=== PATIENT | female | born 1975 | race Caucasian/White ===

== ENCOUNTER 2018-05-07 18:21 | Emergency (ER) | payer OTHER ==
[~2018-05-07] VITALS: Ht 154.9 cm; Wt 65.9 kg
[2018-05-07] MEDS ORDERED: LIDOCAINE 5% TRANSDERMAL PATCH TD ONE (20:00)
[2018-05-07] MEDS ORDERED: METHOCARBAMOL 500 MG TABLET PO ONE (20:00)
[2018-05-07] MEDS ORDERED: KETOROLAC TROMETHAMINE 30 MG/ML VIAL IM ONE (20:00)
[2018-05-07 22:08] VITALS: BP 110/70
== END 2018-05-07 22:10 | disposition home or self-care (01) ==
LOC: EMS 18:22
DX: M54.2 Cervicalgia (principal); R51 Headache; R03.0 Elevated blood-pressure reading, without diagnosis of hypertension; G89.29 Other chronic pain; V49.40XA Driver injured in collision with unspecified motor vehicles in traffic accident, initial encounter; Y93.89 Activity, other specified; Y92.89 Other specified places as the place of occurrence of the external cause; Y99.8 Other external cause status
CPT/HCPCS: 72040; 96372; 99284; J1885

== ENCOUNTER 2018-10-02 16:55 | Emergency (ER) | payer OTHER ==
[~2018-10-02] VITALS: Ht 30.5 cm; Wt 68.2 kg
[2018-10-02] MEDS ORDERED: IBUP-2070 PO (17:46)
[2018-10-02 22:10] VITALS: BP 122/80
== END 2018-10-02 22:11 | disposition home or self-care (01) ==
LOC: EMS 16:55
DX: R21 Rash and other nonspecific skin eruption (principal); M79.604 Pain in right leg; F17.210 Nicotine dependence, cigarettes, uncomplicated; F12.90 Cannabis use, unspecified, uncomplicated
CPT/HCPCS: 93926; 93971; 99406

== ENCOUNTER 2022-08-18 10:52 | Emergency (ER) | payer OTHER ==
[~2022-08-18] VITALS: Ht 157.5 cm; Wt 68.2 kg
[~2022-08-18 10:52] MED LIST: IBUP-1492 PO
[2022-08-18] MEDS ORDERED: DiphenhydrAMINE HCL 50 MG/ML VIAL IVP ONE (12:30)
[2022-08-18] MEDS ORDERED: METOCLOPRAMIDE HCL 5 MG/ML 2 ML VIAL IVP ONE (12:30)
[2022-08-18] MEDS ORDERED: ACETAMINOPHEN 500 MG TABLET PO ONE (12:30)
[2022-08-18 12:34] LABS: COVID AG,FIA SOURCE NASOPHARYNGEAL
[2022-08-18 12:55] LABS: BASOPHILS % (AUTO) 0.4 % (0.0-2.0); EOSINOPHILS % (AUTO) 1.1 % (1.0-6.0); HEMATOCRIT 31.7 % (36-46); HEMOGLOBIN 10.3 g/dL (12.0-16.0); LYMPHOCYTES # (AUTO) 1.1 K/uL (1.0-4.8); LYMPHOCYTES % (AUTO) 8.7 % (22.0-44.0); MEAN CORPUSCULAR HEMOGLOBIN 28.1 pg (26.0-34.0); MEAN CORPUSCULAR HGB CONC 32.4 G/dL (31.0-37.0); MEAN CORPUSCULAR VOLUME 87 fL (80-100); MONOCYTES # (AUTO) 0.9 K/uL (0.1-1.0); MONOCYTES % (AUTO) 6.5 % (2.0-9.0); NEUTROPHILS % (AUTO) 83.3 % (40.0-70.0); PLATELET COUNT (AUTO) 412 K/uL (150-450); RED BLOOD CELL COUNT(AUTO) 3.65 MIL/uL (4.00-5.20); RED CELL DISTRIBUTION WIDTH 15.1 % (11.5-14.5)
[2022-08-18 13:04] LABS: ANION GAP 9 mmol/L (8-16); CALCIUM, TOTAL 8.5 mg/dL (8.8-10.5); CARBON DIOXIDE 28 mmol/L (22-29); CHLORIDE 104 mmol/L (98-107); CREATININE 0.62 mg/dL (0.60-1.30); GLUCOSE,RANDOM 91 mg/dL (70-110); POTASSIUM 3.7 mmol/L (3.5-5.1); SODIUM SERUM 141 mmol/L (136-145); UREA NITROGEN, BLOOD 8 mg/dL (7-18)
[2022-08-18 13:05] LABS: GLOMERULAR FILTR. RATE CALC > 60 mL/min (>60)
[2022-08-18 13:06] LABS: B-TYPE NATRIURETIC PEPTIDE 47 pg/mL (0-100)
[2022-08-18 13:09] LABS: INFLUENZA TYPE A NEGATIVE FOR TYPE A (NEGATIVE); INFLUENZA TYPE B NEGATIVE FOR TYPE B (NEGATIVE)
[2022-08-18 13:16] LABS: ALANINE AMINOTRANSFERASE 29 U/L (12-78); ALBUMIN 2.8 g/dL (3.4-5.0); ALKALINE PHOSPHATASE 88 U/L (46-116); ASPARTATE AMINOTRANSFERASE 34 U/L (15-37); BILIRUBIN,TOTAL 0.4 mg/dL (0.1-1.0); CREATINE KINASE, TOTAL ONLY 46 U/L (26-192); HCG,QUANTITATIVE 1 mIU/mL (0-6); TOTAL PROTEIN, SERUM 6.9 g/dL (6.4-8.2)
[2022-08-18 13:26] VITALS: BP 127/78
== END 2022-08-18 15:34 | disposition home or self-care (01) ==
LOC: EMS 10:54
DX: R51.9 Headache, unspecified (principal); R60.0 Localized edema; J02.9 Acute pharyngitis, unspecified; F17.210 Nicotine dependence, cigarettes, uncomplicated; F12.90 Cannabis use, unspecified, uncomplicated; Z98.890 Other specified postprocedural states; Z20.822 Contact with and (suspected) exposure to COVID-19
CPT/HCPCS: 99285; 93970; 96374; 70450; 71045; 96375; 87426; 80053; 82550; 83880; 84484; 84702; 85025; 85379; 87430; 87804; 36415; 93005; J1200; J2765

== ENCOUNTER 2023-04-12 19:14 | Emergency (ER) | payer OTHER ==
[~2023-04-12] VITALS: Ht 154.9 cm; Wt 70.5 kg
[2023-04-12 19:19] VITALS: TEMP 99.2
[2023-04-12] MEDS ORDERED: LIDOCAINE 1% 10 ML VIAL SQ ONE (20:30)
[2023-04-12] MEDS ORDERED: PERTUSS(ACELL),DIPH,TET VAC/PF 0.5 ML SYRINGE IM. ONE (20:30)
[2023-04-12] MEDS ORDERED: BACITRACIN 0.9 GM PACKET OINTMENT TP ONE (20:30)
[2023-04-12] MEDS ORDERED: IBUPROFEN 600 MG TABLET PO ONE (20:30)
[2023-04-12 21:28] VITALS: BP 119/71; PULSE 71; RESP 16
[2023-04-12] MEDS ORDERED: AMOX1TAB16 PO (21:52)
[2023-04-12] MEDS ORDERED: HYDR-4072 PO (21:52)
[2023-04-12] MEDS ORDERED: POLY238P PO (21:52)
[2023-04-12] MEDS ORDERED: HYDROCODONE/ACETAMINOPHEN 5-325 MG TABLET PO ONE (22:00)
== END 2023-04-12 22:23 | disposition home or self-care (01) ==
LOC: EMS 19:15
DX: S61.451A Open bite of right hand, initial encounter (principal); F17.210 Nicotine dependence, cigarettes, uncomplicated; F12.90 Cannabis use, unspecified, uncomplicated; Z98.890 Other specified postprocedural states; W54.0XXA Bitten by dog, initial encounter; Y93.89 Activity, other specified; Y92.89 Other specified places as the place of occurrence of the external cause; Y99.8 Other external cause status
CPT/HCPCS: 99284; 12032; 90715; 90471; J3490; 99283

== ENCOUNTER 2024-09-25 08:38 | Emergency (ER) | payer OTHER ==
[~2024-09-25] VITALS: Ht 154.9 cm; Wt 70.0 kg
[~2024-09-25 08:38] MED LIST changes: +AMOX-457 PO; +HYDR-4072 PO; -IBUP-1492 PO; +POLY238P PO
[2024-09-25 08:41] VITALS: TEMP 98
[2024-09-25 09:01] LABS: BASOPHILS % (AUTO) 0.5 % (0.0-2.0); EOSINOPHILS % (AUTO) 2.1 % (1.0-6.0); HEMATOCRIT 46.6 % (36-46); HEMOGLOBIN 15.7 g/dL (12.0-16.0); LYMPHOCYTES # (AUTO) 3.1 K/uL (1.0-4.8); LYMPHOCYTES % (AUTO) 25.3 % (22.0-44.0); MEAN CORPUSCULAR HEMOGLOBIN 32.5 pg (26.0-34.0); MEAN CORPUSCULAR HGB CONC 33.6 G/dL (31.0-37.0); MEAN CORPUSCULAR VOLUME 97 fL (80-100); MONOCYTES # (AUTO) 0.6 K/uL (0.1-1.0); MONOCYTES % (AUTO) 5.3 % (2.0-9.0); NEUTROPHILS # (AUTO) 8.1 K/uL (1.8-7.7); NEUTROPHILS % (AUTO) 66.8 % (40.0-70.0); PLATELET COUNT (AUTO) 328 K/uL (150-450); RED BLOOD CELL COUNT(AUTO) 4.82 MIL/uL (4.00-5.20); RED CELL DISTRIBUTION WIDTH 13.3 % (11.5-14.5); WHITE BLOOD COUNT (AUTO) 12.2 K/uL (4.5-11.0)
[2024-09-25 09:03] LABS: COVID AG,FIA SOURCE NASAL SWAB
[2024-09-25 09:08] LABS: ANION GAP 11 mmol/L (8-16); CALCIUM, TOTAL 9.8 mg/dL (8.8-10.5); CARBON DIOXIDE 30 mmol/L (22-29); CHLORIDE 102 mmol/L (98-107); CREATININE 0.72 mg/dL (0.60-1.30); GLOMERULAR FILTR. RATE CALC > 60 mL/min (>60); GLUCOSE,RANDOM 100 mg/dL (70-110); POTASSIUM 3.9 mmol/L (3.5-5.1); SODIUM SERUM 142 mmol/L (136-145); UREA NITROGEN, BLOOD 9 mg/dL (7-18)
[2024-09-25 09:17] LABS: TROPONIN I-HIGH SENSITIVITY 4 ng/L (<51)
[2024-09-25 09:30] LABS: INFLUENZA TYPE A NEGATIVE FOR TYPE A (NEGATIVE); INFLUENZA TYPE B NEGATIVE FOR TYPE B (NEGATIVE); SARS-COV2 (COVID) ANTIGEN,FIA Negative (Negative)
[2024-09-25] MEDS ORDERED: AZIT250T9 PO (10:00)
[2024-09-25] MEDS: PB/HYOSCY/ATR/SCOP/LIDO/MAALOX 55 ML BOTTLE PO ONE (10:17)
[2024-09-25] MEDS: DiphenhydrAMINE HCL 50 MG/ML VIAL IVP ONE (10:31)
[2024-09-25] MEDS: PROCHLORPERAZINE EDISYLATE 5 MG/ML 2 ML VIAL IVP ONE (10:40)
[2024-09-25 10:55] VITALS: BP 136/90; PULSE 84; RESP 16; O2SAT 99
== END 2024-09-25 11:25 | disposition home or self-care (01) ==
LOC: EMS 08:42
DX: J20.8 Acute bronchitis due to other specified organisms (principal); F12.90 Cannabis use, unspecified, uncomplicated; F17.210 Nicotine dependence, cigarettes, uncomplicated; R07.89 Other chest pain; Z98.890 Other specified postprocedural states; Z20.822 Contact with and (suspected) exposure to COVID-19
CPT/HCPCS: 99285; 96374; 71045; 96375; 99406; 87426; 80048; 84484; 85025; 87804; 36415; 93005; J1200; J0780

== ENCOUNTER 2024-10-10 18:57 | Emergency (ER) | payer OTHER ==
[~2024-10-10] VITALS: Ht 154.9 cm; Wt 70.9 kg
[2024-10-10 19:03] VITALS: BP 151/66; PULSE 97; RESP 20; TEMP 98.4; O2SAT 100
[2024-10-10 20:11] LABS: BASOPHILS % (AUTO) 0.2 % (0.0-2.0); EOSINOPHILS % (AUTO) 2.3 % (1.0-6.0); HEMATOCRIT 44.4 % (36-46); HEMOGLOBIN 15.1 g/dL (12.0-16.0); LYMPHOCYTES % (AUTO) 31.6 % (22.0-44.0); MEAN CORPUSCULAR HEMOGLOBIN 32.7 pg (26.0-34.0); MEAN CORPUSCULAR VOLUME 96 fL (80-100); MONOCYTES # (AUTO) 0.7 K/uL (0.1-1.0); MONOCYTES % (AUTO) 5.8 % (2.0-9.0); NEUTROPHILS # (AUTO) 7.6 K/uL (1.8-7.7); NEUTROPHILS % (AUTO) 60.1 % (40.0-70.0); PLATELET COUNT (AUTO) 375 K/uL (150-450); RED BLOOD CELL COUNT(AUTO) 4.61 MIL/uL (4.00-5.20); RED CELL DISTRIBUTION WIDTH 13.1 % (11.5-14.5); WHITE BLOOD COUNT (AUTO) 12.7 K/uL (4.5-11.0)
[2024-10-10 20:27] LABS: ANION GAP 5 mmol/L (8-16); CARBON DIOXIDE 30 mmol/L (22-29); CHLORIDE 101 mmol/L (98-107); CREATININE 0.68 mg/dL (0.60-1.30); GLOMERULAR FILTR. RATE CALC > 60 mL/min (>60); GLUCOSE,RANDOM 93 mg/dL (70-110); POTASSIUM 3.7 mmol/L (3.5-5.1); SODIUM SERUM 136 mmol/L (136-145); UREA NITROGEN, BLOOD 13 mg/dL (7-18)
[2024-10-10 20:32] LABS: B-TYPE NATRIURETIC PEPTIDE 12 pg/mL (0-100)
[2024-10-10 20:36] LABS: TROPONIN I-HIGH SENSITIVITY 4 ng/L (<51)
[2024-10-10] MEDS: METOCLOPRAMIDE HCL 10 MG TABLET PO ONE (23:09)
[2024-10-10] MEDS: DIAZEPAM 5 MG TABLET PO ONE (23:09)
[2024-10-10] MEDS: KETOROLAC TROMETHAMINE 30 MG/ML VIAL IM ONE (23:10)
[2024-10-10] MEDS: ACETAMINOPHEN 325 MG TABLET PO ONE (23:10)
[2024-10-11] MEDS ORDERED: METH-812 PO (00:34)
== END 2024-10-11 00:44 | disposition home or self-care (01) ==
LOC: EMS 18:57
DX: M54.12 Radiculopathy, cervical region (principal); R51.9 Headache, unspecified; F12.90 Cannabis use, unspecified, uncomplicated; F17.210 Nicotine dependence, cigarettes, uncomplicated
CPT/HCPCS: 99285; 71045; 80048; 83880; 84484; 85025; 36415; 93005; 96372; J1885